=== PATIENT | female | born 1980 | race Caucasian/White ===

== ENCOUNTER → 2016-07-14 | Day surgery (SDC) | payer OTHER, MEDICAID ==
[~2016-07-14] MED LIST: Lidocaine 1% with EPINEPHrine 1:100,000 50 ML MDV ONE; Sodium Chloride 0.9% 0 ML ONE; Sodium Chloride 0.9% 1,000 ML IV SCH; Sodium Tetradecyl Sulfate 1% 20 MG/2 ML SDV ONE
== END ==
LOC: JP.SDS 07:45
PROVIDERS: ATTEND Surgery
DX: Z53.9 Procedure and treatment not carried out, unspecified reason (principal)
CPT/HCPCS: J1642; J7050

== ENCOUNTER 2017-01-03 19:59 | Emergency (ER) | payer MEDICAID, OTHER ==
[2017-01-03 20:09] VITALS: BP 119/70
--- NOTE | 2017-01-03 21:31 | EDM.PDOC ---
[id number]: SEVER ABDOMINAL PAIN RT RADIATES TO BACK Time Seen by Provider: 01/03/17 20:15 Source of Information: Reports: Patient History Limitations: Reports: No Limitations - History of Present Illness INITIAL COMMENTS - FREE TEXT/NARRATIVE: 36-year-old female with a history of gastric bypass has had a persistent abdominal pain for the past several weeks. Initial workup showed some ovarian cyst issues with some free fluid, she has an SHAKE MAKER appointment in 1 week. The pain is now more upper abdomen on the right side radiating through to her back and seems to be worse when she tries to eat. No fevers or chills, no bowel changes. She was told if it gets worse to come into the emergency room. She actually looks comfortable. Onset: Gradual Duration: Week(s): (Pain is been ongoing for 3 weeks, the upper abdominal pain for several days) RUQ Pain Score (Numeric/FACES): 6 - Related Data Allergies Allergy/AdvReac Type Severity Reaction Status Date / Time amoxicillin [Amoxicillin] Allergy Hives Unverified 07/12/16 12:53 Tetracyclines Allergy Hives Unverified 07/12/16 12:53 Home Meds: Home Meds Cyanocobalamin (Vitamin B12) [Vitamin B12] 1,000 mcg PO DAILY 09/29/15 [History] Pediatric Multivit #17/Iron [Children's Chewables] 1 tab PO BID #0 10/02/15 [Rx ] Pantoprazole [Protonix] 40 mg PO BID 12/18/15 [History] Calcium Carbonate [Tums] 200 mg PO BID 03/18/16 [History] Multivitamin with Minerals [Multiple Vitamin] 1 tab PO BID 03/18/16 [History] Cyanocobalamin (Vitamin B-12) [Vitamin B-12] 1,000 mcg IM .Q3WKS 06/24/16 [ History] Sucralfate [Carafate] 10 ml PO QID 06/24/16 [History] Past Medical History HEENT History: Reports: None Cardiovascular History: Reports: Arrhythmia Respiratory History: Reports: None Gastrointestinal History: Reports: Chronic Constipation, Colon Polyp, Gastritis , GERD, Hemorrhoids, Hiatal Hernia, Irritable Bowel Syndrome Genitourinary History: Reports: None SHAKE MAKER History: Reports: , Spontaneous Musculoskeletal History: Reports: None Neurological History: Reports: None Psychiatric History: Reports: None Endocrine/Metabolic History: Reports: Obesity/BMI 30+ Hematologic History: Reports: B12 Deficiency Immunologic History: Reports: None Oncologic (Cancer) History: Reports: None Dermatologic History: Reports: None - Infectious Disease History Infectious Disease History: Reports: None - Past Surgical History HEENT Surgical History: Reports: None Cardiovascular Surgical History: Reports: None GI Surgical History: Reports: Bariatric Procedure, Cholecystectomy, Colonoscopy , EGD, Hernia Repair/Other Female Surgical History: Reports: Hysterectomy Musculoskeletal Surgical History: Reports: Other (See Below) Oncologic Surgical History: Reports: None Social & Family History - Family History Family Medical History: Noncontributory Cardiac: Reports: Bypass, Hypertension, [place] Respiratory: Reports: None GI: Reports: None : Reports: None OBGYN: Reports: None Musculoskeletal: Reports: None Neurological: Reports: Dementia Psychiatric: Reports: None Endocrine/Metabolic: Reports: Diabetes, type II, Hypothyroidism Hematologic: Reports: None Immunologic: Reports: None Dermatologic: Reports: None Oncologic: Reports: Breast, Cervix, Liver - Tobacco Use Smoking Status *Q: Never Smoker Second Hand Smoke Exposure: No - Caffeine Use Caffeine Use: Reports: Coffee - Alcohol Use Days Per Week of Alcohol Use: 0 - Recreational Drug Use Recreational Drug Use: No ED ROS GENERAL - Review of Systems Review Of Systems: See Below Constitutional: Denies: Fever, Chills, Malaise Respiratory: Denies: Shortness of Breath Cardiovascular: Denies: Chest Pain GI/Abdominal: Reports: Abdominal Pain. Denies: Diarrhea, Nausea, Vomiting : Reports: No Symptoms Skin: Reports: No Symptoms Neurological: Reports: No Symptoms ED EXAM, GI/ABD - Physical Exam Exam: See Below Exam Limited By: No Limitations General Appearance: Alert, No Apparent Distress Eyes: Bilateral: Normal Appearance (No jaundice) Respiratory/Chest: No Respiratory Distress, Lungs Clear Cardiovascular: Regular Rate, Rhythm GI/Abdominal: Normal Bowel Sounds, Soft, Tenderness (She does react with tenderness to palpation of the right upper quadrant but there are no masses, no guarding) Course - Vital Signs Last Recorded V/S: Last Vital Signs Temp 97.4 F 01/03/17 20:15 Pulse 60 01/03/17 20:15 Resp 16 01/03/17 20:15 BP 119/70 01/03/17 20:15 Pulse Ox 100 01/03/17 20:15 - Orders/Labs/Meds Labs: Laboratory Tests 01/03/17 01/03/17 Range/Units 20:55 20:55 WBC 4.9 (4.5-11.0) K/uL RBC 3.32 (3.30-5.50) M/uL Hgb 10.6 L D (12.0-15.0) g/dL Hct 31.7 L (36.0-48.0) % MCV 96 (80-98) fL MCH 32 H (27-31) pg MCHC 33 (32-36) % Plt Count 219 (150-400) K/uL Neut % (Auto) 43 (36-66) % Lymph % (Auto) 46 H (24-44) % [place] % (Auto) 9 H (2-6) % Eos % (Auto) 2 (2-4) % Baso % (Auto) 1 (0-1) % Sodium 143 (140-148) mmol/L Potassium 3.7 (3.6-5.2) mmol/L Chloride 107 (100-108) mmol/L Carbon Dioxide 27 (21-32) mmol/L Anion Gap 9.0 (5.0-14.0) mmol/L BUN 12 (7-18) mg/dL Creatinine 0.7 (0.6-1.0) mg/dL Est Cr Clr Drug Dosing 112.22 mL/min Estimated GFR (MDRD) > 60 (>60) Glucose 83 (74-106) mg/dL Calcium 8.1 L (8.5-10.1) mg/dL Total Bilirubin 0.9 (0.2-1.0) mg/dL AST 18 (15-37) U/L ALT 26 (12-78) U/L Alkaline Phosphatase 75 (46-116) U/L Total Protein 6.6 (6.4-8.2) g/dL Albumin 3.4 (3.4-5.0) g/dL Globulin 3.2 (2.3-3.5) g/dL Albumin/Globulin Ratio 1.1 L (1.2-2.2) Amylase 46 (25-115) U/L Lipase 134 (73-393) U/L - Re-Assessments/Exams Free Text/Narrative Re-Assessment/Exam: 01/03/17 21:30 CBC and CMP were obtained which were reassuring other than a mildly low hemoglobin. I suspect an EGD would be worthwhile but no further workup I think is needed at this time. She is to contact the surgical department tomorrow to discuss a recheck. Departure - Departure Time of Disposition: 21:40 Disposition: Home, Self-Care 01 Condition: Good Clinical Impression: Abdominal pain Qualifiers: Abdominal location: right upper quadrant Qualified Code(s): R10.11 - Right upper quadrant pain - Discharge Information Instructions: Abdominal Pain, Adult, [id number] Referrals: PCP,None [Primary Care Provider] - Forms: ED Department Discharge Care Plan Goals: Continue your current medications, diet as tolerated and call the surgical clinic in the next day or 2 to set up a recheck appointment.
== END 2017-01-03 21:40 | disposition home or self-care (01) ==
LOC: JP.ED 19:59
DX: R10.11 Right upper quadrant pain (principal); K21.9 Gastro-esophageal reflux disease without esophagitis; E66.9 Obesity, unspecified; Z90.49 Acquired absence of other specified parts of digestive tract; Z90.710 Acquired absence of both cervix and uterus; Z88.1 Allergy status to other antibiotic agents; Z79.899 Other long term (current) drug therapy; Z68.21 Body mass index [BMI] 21.0-21.9, adult
CPT/HCPCS: 36415; 80053; 82150; 83690; 85025; 99284

== ENCOUNTER 2017-12-28 19:47 | Emergency (ER) | payer BC, OTHER ==
[2017-12-28 20:23] VITALS: BP 125/72
[2017-12-28] MEDS ORDERED: Ketorolac 60 MG/2 ML SDV IM ONE (20:29)
--- NOTE | 2017-12-28 20:34 | EDM.PDOC ---
ED HPI GENERAL MEDICAL PROBLEM - General Chief Complaint: Respiratory Problem Stated Complaint: DIFFICULTY BREATHING Time Seen by Provider: 12/28/17 20:20 Source of Information: Reports: Patient, Old Records, RN History Limitations: Reports: No Limitations - History of Present Illness INITIAL COMMENTS - FREE TEXT/NARRATIVE: 38 yo female presents with pleuritic pain to the right side of her chest. Denies injury to this area. No fever. Is not a smoker. Has noticed more swelling in her right leg lately. Pain feels like when she had pleurisy in the past. Notes tenderness to the right lateral chest when she touches it. Sx's x 2 days. Onset: Today Onset Date: 12/28/17 Duration: Hour(s):, Constant Location: Reports: Chest Quality: Reports: Sharp, Stabbing Severity: Moderate Improves with: Reports: Other (not breathing) Worsens with: Reports: Movement (or breathing) Context: Reports: Other (unknown) Associated Symptoms: Reports: Other (R leg slightly swollen without tenderness. 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: Other (see below) (none) - Related Data Allergies Allergy/AdvReac Type Severity Reaction Status Date / Time amoxicillin [Amoxicillin] Allergy Hives Verified 12/28/17 20:16 Tetracyclines Allergy Hives Verified 12/28/17 20:16 Home Meds: Home Meds Cyanocobalamin (Vitamin B12) [Vitamin B12] 1,000 mcg PO DAILY 09/29/15 [History] Pediatric Multivit #17/Iron [Children's Chewables] 1 tab PO BID #0 10/02/15 [Rx] Pantoprazole [Protonix] 40 mg PO BID 12/18/15 [History] Calcium Carbonate [Tums] 200 mg PO BID 03/18/16 [History] Multivitamin with Minerals [Multiple Vitamin] 1 tab PO BID 03/18/16 [History] Cyanocobalamin (Vitamin B-12) [Vitamin B-12] 1,000 mcg IM .Q3WKS 06/24/16 [ History] Sucralfate [Carafate] 10 ml PO QID 06/24/16 [History] Past Medical History HEENT History: Reports: None Cardiovascular History: Reports: Arrhythmia Respiratory History: Reports: None Gastrointestinal History: Reports: Chronic Constipation, Colon Polyp, Gastritis , GERD, Hemorrhoids, Hiatal Hernia, Irritable Bowel Syndrome Genitourinary History: Reports: None CLOTH 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 History: Reports: , Spontaneous Musculoskeletal History: Reports: None Neurological History: Reports: None Psychiatric History: Reports: None Endocrine/Metabolic History: Reports: Obesity/BMI 30+ Hematologic History: Reports: B12 Deficiency Immunologic History: Reports: None Oncologic (Cancer) History: Reports: None Dermatologic History: Reports: None - Infectious Disease History Infectious Disease History: Reports: None - Past Surgical History HEENT Surgical History: Reports: None Cardiovascular Surgical History: Reports: None GI Surgical History: Reports: Bariatric Procedure, Cholecystectomy, Colonoscopy , EGD, Hernia Repair/Other Female Surgical History: Reports: Hysterectomy Musculoskeletal Surgical History: Reports: Other (See Below) Oncologic Surgical History: Reports: None Social & Family History - Family History Family Medical History: Noncontributory Cardiac: Reports: Bypass, Hypertension, [place] Respiratory: Reports: None GI: Reports: None : Reports: None OBGYN: Reports: None Musculoskeletal: Reports: None Neurological: Reports: Dementia Psychiatric: Reports: None Endocrine/Metabolic: Reports: Diabetes, type II, Hypothyroidism Hematologic: Reports: None Immunologic: Reports: None Dermatologic: Reports: None Oncologic: Reports: Breast, Cervix, Liver - Tobacco Use Smoking Status *Q: Never Smoker - Caffeine Use Caffeine Use: Reports: Coffee ED ROS GENERAL - Review of Systems Review Of Systems: See Below Constitutional: Reports: No Symptoms HEENT: Reports: No Symptoms Respiratory: Reports: Pleuritic Chest Pain Cardiovascular: Reports: No Symptoms GI/Abdominal: Reports: No Symptoms : Reports: No Symptoms Musculoskeletal: Reports: Other (R leg minimally swollen) Skin: Reports: No Symptoms Neurological: Reports: No Symptoms Psychiatric: Reports: No Symptoms ED EXAM, GENERAL - Physical Exam Exam: See Below Exam Limited By: No Limitations General Appearance: Alert, WD/WN, Mild Distress Eye Exam: Bilateral Eye: Normal Inspection Ears: Normal External Exam, Normal Canal, Hearing Grossly Normal Ear Exam: Bilateral Ear: Auricle Normal, Canal Normal Nose: Normal Inspection, Normal Mucosa, No Blood Throat/Mouth: Normal Inspection, Normal Lips, Normal Oropharynx, Normal Voice, No Airway Compromise Head: Atraumatic, Normocephalic Neck: Normal Inspection Respiratory/Chest: No Respiratory Distress, Lungs Clear, Normal Breath Sounds, No Accessory Muscle Use, Other (R lateral chest wall tenderness. ). No: Chest Non-Tender Cardiovascular: Regular Rate, Rhythm GI/Abdominal: Normal Bowel Sounds, Soft, Non-Tender Extremities: Pedal Edema (trace on R with engorgement/varicosities of veins visible in that leg. ). No: No Pedal Edema Neurological: Alert, Oriented, CN II-XII Intact, Normal Cognition, No Motor/ Sensory Deficits Psychiatric: Normal Affect, Normal Mood Skin Exam: Warm, Dry, Intact, Normal Color, No Rash Course - Vital Signs Last Recorded V/S: Last Vital Signs Temp 36.6 C 12/28/17 20:21 Pulse 65 12/28/17 20:21 Resp 16 12/28/17 20:21 BP 125/72 12/28/17 20:21 Pulse Ox 99 12/28/17 20:21 - Orders/Labs/Meds Orders: Active Orders 24 hr Category Date Time Status Ang Chest [CT] Stat Exams 12/28/17 22:37 Ordered VL Duplex Lwr Ext Veins Ltd Rt [US] Stat Exams 12/28/17 21:20 Taken Iopamidol [Isovue-370 (76%)] Med 12/28/17 22:45 Active 100 ml IV . DIRECTED Sodium Chloride 0.9% [Normal Saline] 100 ml Med 12/28/17 22:45 Active IV ASDIRECTED Sodium Chloride 0.9% [Saline Flush] Med 12/28/17 22:40 Active 10 ml FLUSH ASDIRECTED PRN Medication Orders Sodium Chloride (Normal Saline) 100 mls @ 3 mls/sec IV ASDIRECTED NILSON Last Admin: 12/28/17 23:08 Dose: 3 mls/sec Iopamidol (Isovue-370 (76%)) 100 ml IV . DIRECTED NILSON Last Admin: 12/28/17 23:07 Dose: 100 ml Sodium Chloride (Saline Flush) 10 ml FLUSH ASDIRECTED PRN PRN Reason: Keep Vein Open Last Admin: 12/28/17 23:07 Dose: 10 ml Labs: Laboratory Tests 12/28/17 12/28/17 12/28/17 Range/Units 20:37 20:37 20:37 WBC 6.7 (4.5-11.0) K/uL RBC 3.67 (3.30-5.50) M/uL Hgb 11.5 L (12.0-15.0) g/dL Hct 33.6 L (36.0-48.0) % MCV 92 (80-98) fL MCH 31 (27-31) pg MCHC 34 (32-36) % Plt Count 288 (150-400) K/uL D-Dimer, Quantitative 610 H (0.0-400.0) ng/mL C-Reactive Protein 1.34 H (0.0-0.3) mg/dL Meds: Medications Generic Name Dose Route Start Last Admin Trade Name Freq PRN Reason Stop Dose Admin Sodium Chloride 100 mls @ 3 mls/sec 12/28/17 22:45 12/28/17 23:08 Normal Saline IV 3 mls/sec ASDIRECTED NILSON Administration Iopamidol 100 ml 12/28/17 22:45 12/28/17 23:07 Isovue-370 (76%) IV 100 ml . DIRECTED NILSON Administration Sodium Chloride 10 ml 12/28/17 22:40 12/28/17 23:07 Saline Flush FLUSH 10 ml ASDIRECTED PRN Administration Keep Vein Open Discontinued Medications Generic Name Dose Route Start Last Admin Trade Name Cindy PRN Reason Stop Dose Admin Ketorolac Tromethamine 60 mg 12/28/17 20:29 12/28/17 21:03 Toradol IM 12/28/17 20:30 60 mg ONETIME ONE Administration - Radiology Interpretation Free Text/Narrative:: venous doppler R leg negative CT PE study-RML pneumonia CT Results Date: 12/29/17 CT Results Time: 00:00 Departure - Departure Time of Disposition: 00:13 Disposition: Home, Self-Care 01 Condition: Fair Clinical Impression: Pneumonia Qualifiers: Pneumonia type: due to unspecified organism Laterality: right Lung location: middle lobe of lung Qualified Code(s): J18.1 - Lobar pneumonia, unspecified organism - Discharge Information Referrals: PCP,None [Primary Care Provider] - Forms: ED Department Discharge - My Orders Last 24 Hours: My Active Orders 12/28/17 21:20 VL Duplex Lwr Ext Veins Ltd Rt [US] Stat 12/28/17 22:37 Ang Chest [CT] Stat 12/28/17 22:40 Sodium Chloride 0.9% [Saline Flush] 10 ml FLUSH ASDIRECTED PRN 12/28/17 22:45 Iopamidol [Isovue-370 (76%)] 100 ml IV . DIRECTED Sodium Chloride 0.9% [Normal Saline] 100 ml IV ASDIRECTED - Assessment/Plan Last 24 Hours: My Active Orders 12/28/17 21:20 VL Duplex Lwr Ext Veins Ltd Rt [US] Stat 12/28/17 22:37 Ang Chest [CT] Stat 12/28/17 22:40 Sodium Chloride 0.9% [Saline Flush] 10 ml FLUSH ASDIRECTED PRN 12/28/17 22:45 Iopamidol [Isovue-370 (76%)] 100 ml IV . DIRECTED Sodium Chloride 0.9% [Normal Saline] 100 ml IV ASDIRECTED
[2017-12-28] MEDS ORDERED: Sodium Chloride 0.9% 10 ML Syringe FLUSH PRN (22:40)
[2017-12-28] MEDS ORDERED: Sodium Chloride 0.9% 100 ML IV SCH (22:45)
[2017-12-28] MEDS ORDERED: Iopamidol 755 Mg/ML 100 ML Bottle IV SCH (22:45)
--- NOTE | 2017-12-29 09:08 | US ---
VL Duplex Lwr Ext Veins Ltd Rt INDICATION: elevated d-dimer/R leg slightly swollen FINDINGS: Ultrasound examination of the lower extremity using Doppler and compressive technique demon strates that the common femoral, femoral, and popliteal veins are patent, and negative for thrombus. The calf veins were segmentally visualized and are negative where seen. IMPRESSION: Negative for deep venous thrombosis.
== END 2017-12-29 00:40 | disposition home or self-care (01) ==
LOC: JP.ED 19:47
DX: J18.9 Pneumonia, unspecified organism (principal); Z88.1 Allergy status to other antibiotic agents; Z79.899 Other long term (current) drug therapy
CPT/HCPCS: 36415; 71275; 85027; 85379; 86140; 93971; 96372; 99284; J1885; J7030; J7050; Q9967

== ENCOUNTER 2018-01-16 12:14 | Inpatient (IN) | payer BC ==
[2018-01-16] MEDS ORDERED: HYDROmorphone 0.5 MG/0.5 ML Syringe IVPUSH ONE (13:29)
[2018-01-16] MEDS ORDERED: Lactated Ringers 1,000 ML IV SCH (13:30)
--- NOTE | 2018-01-16 13:35 | EDM.PDOC ---
ED HPI GENERAL MEDICAL PROBLEM - General Chief Complaint: Abdominal Pain Stated Complaint: SEVERE STOMACH PAIN, UNABLE TO STAND Time Seen by Provider: 01/16/18 13:20 Source of Information: Reports: Patient, Old Records History Limitations: Reports: No Limitations - History of Present Illness INITIAL COMMENTS - FREE TEXT/NARRATIVE: 37 yo female presents with epigastric pain that waxes and wanes. Was mild starting yesterday until about 11 am today, then got severe. Pain is mild now. No fever or nausea. Hx of gastric bypass with Dr. Prince about 2 yrs ago. No bleeding. Did not call Dr. Prince. Onset Date: 01/15/18 Duration: Hour(s): Location: Reports: Abdomen Quality: Reports: Pressure Severity: Moderate Improves with: Reports: Other (unknown) Worsens with: Reports: Other (unknown) Context: Reports: Other (hx of Hailey-N-Y) Associated Symptoms: Reports: Nausea/Vomiting (not now). 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: Reports: Other (see below) (none) Abdominal Pain Score (Numeric/FACES): 5 - Related Data Allergies Allergy/AdvReac Type Severity Reaction Status Date / Time amoxicillin [Amoxicillin] Allergy Hives Verified 01/16/18 13:54 Tetracyclines Allergy Hives Verified 01/16/18 13:54 Home Meds: Home Meds NK [No Known Home Meds] 01/16/18 [History] Past Medical History HEENT History: Reports: None Cardiovascular History: Reports: Arrhythmia Respiratory History: Reports: None Gastrointestinal History: Reports: Chronic Constipation, Colon Polyp, Gastritis , GERD, Hemorrhoids, Hiatal Hernia, Irritable Bowel Syndrome Genitourinary History: Reports: None LAST PULLER History: Reports: , Spontaneous Musculoskeletal History: Reports: None Neurological History: Reports: None Psychiatric History: Reports: None Endocrine/Metabolic History: Reports: Obesity/BMI 30+ Hematologic History: Reports: B12 Deficiency Immunologic History: Reports: None Oncologic (Cancer) History: Reports: None Dermatologic History: Reports: None - Infectious Disease History Infectious Disease History: Reports: None - Past Surgical History HEENT Surgical History: Reports: None Cardiovascular Surgical History: Reports: None GI Surgical History: Reports: Bariatric Procedure, Cholecystectomy, Colonoscopy , EGD, Hernia Repair/Other Female Surgical History: Reports: Hysterectomy Musculoskeletal Surgical History: Reports: Other (See Below) Oncologic Surgical History: Reports: None Social & Family History - Family History Family Medical History: Noncontributory Cardiac: Reports: Bypass, Hypertension, [place] Respiratory: Reports: None GI: Reports: None : Reports: None OBGYN: Reports: None Musculoskeletal: Reports: None Neurological: Reports: Dementia Psychiatric: Reports: None Endocrine/Metabolic: Reports: Diabetes, type II, Hypothyroidism Hematologic: Reports: None Immunologic: Reports: None Dermatologic: Reports: None Oncologic: Reports: Breast, Cervix, Liver - Caffeine Use Caffeine Use: Reports: Coffee ED ROS GENERAL - Review of Systems Review Of Systems: See Below Constitutional: Reports: No Symptoms HEENT: Reports: No Symptoms Respiratory: Reports: No Symptoms Cardiovascular: Reports: No Symptoms GI/Abdominal: Reports: Abdominal Pain, Nausea, Vomiting. Denies: Black Stool, Bloody Stool, Constipation, Diarrhea, Decreased Appetite, Distension, Hematemesis : Reports: No Symptoms Musculoskeletal: Reports: No Symptoms Skin: Reports: No Symptoms Neurological: Reports: No Symptoms ED EXAM, GI/ABD - Physical Exam Exam: See Below Exam Limited By: No Limitations General Appearance: Alert, WD/WN, No Apparent Distress Eyes: Bilateral: Normal Appearance Ears: Normal External Exam, Normal Canal, Hearing Grossly Normal, Normal TMs Nose: Normal Inspection, Normal Mucosa, No Blood Throat/Mouth: Normal Inspection, Normal Lips, Normal Oropharynx, Normal Voice, No Airway Compromise Head: Atraumatic, Normocephalic Neck: Normal Inspection Respiratory/Chest: No Respiratory Distress, Lungs Clear, Normal Breath Sounds Cardiovascular: Regular Rate, Rhythm, No Edema GI/Abdominal Exam: Normal Bowel Sounds, Soft, No Distention, Tender (upper abd/ epigastrium). No: Distended, Guarding, Rigid, Rebound, Abnormal Bowel Sounds, Hernia Extremities: Normal Inspection, Normal Range of Motion, Non-Tender, No Pedal Edema Neurological: Alert, Oriented, CN II-XII Intact, Normal Cognition, No Motor/ Sensory Deficits Psychiatric: Normal Affect, Normal Mood Skin Exam: Warm, Dry, Intact, Normal Color, No Rash Lymphatic: No Adenopathy Course - Vital Signs Last Recorded V/S: Last Vital Signs Temp 36.6 C 01/16/18 13:48 Pulse 64 01/16/18 13:48 Resp 20 01/16/18 13:48 BP 132/84 01/16/18 13:48 Pulse Ox 96 01/16/18 13:48 - Orders/Labs/Meds Orders: Active Orders 24 hr Category Date Time Status Lactated Ringers [Ringers, Lactated] 1,000 ml Med 01/16/18 13:30 Active IV ASDIRECTED Medication Orders Lactated Ringer's (Ringers, Lactated) 1,000 mls @ 150 mls/hr IV ASDIRECTED NILSON Last Admin: 01/16/18 14:11 Dose: 150 mls/hr Labs: Laboratory Tests 01/16/18 01/16/18 Range/Units 13:35 13:35 WBC 5.2 (4.5-11.0) K/uL RBC 3.76 (3.30-5.50) M/uL Hgb 11.6 L (12.0-15.0) g/dL Hct 34.5 L (36.0-48.0) % MCV 92 (80-98) fL MCH 31 (27-31) pg MCHC 34 (32-36) % Plt Count 300 (150-400) K/uL Sodium 140 (140-148) mmol/L Potassium 3.8 (3.6-5.2) mmol/L Chloride 106 (100-108) mmol/L Carbon Dioxide 25 (21-32) mmol/L Anion Gap 12.8 (5.0-14.0) mmol/L BUN 14 (7-18) mg/dL Creatinine 0.6 (0.6-1.0) mg/dL Est Cr Clr Drug Dosing 132.00 mL/min Estimated GFR (MDRD) > 60 (>60) Glucose 94 (74-106) mg/dL Calcium 8.2 L (8.5-10.1) mg/dL Lipase 106 (73-393) U/L Meds: Medications Generic Name Dose Route Start Last Admin Trade Name Freq PRN Reason Stop Dose Admin Lactated Ringer's 1,000 mls @ 150 mls/hr 01/16/18 13:30 01/16/18 14:11 Ringers, Lactated IV 150 mls/hr ASDIRECTED NILSON Administration Discontinued Medications Generic Name Dose Route Start Last Admin Trade Name Freq PRN Reason Stop Dose Admin Hydromorphone HCl 0.5 mg 01/16/18 13:29 01/16/18 14:12 Dilaudid IVPUSH 01/16/18 13:30 0.5 mg ONETIME ONE Administration Sodium Chloride 70 mls @ 3 mls/sec 01/16/18 13:40 01/16/18 14:23 Normal Saline IV 01/16/18 13:41 3 mls/sec ONETIME ONE Administration Iopamidol 100 ml 01/16/18 13:40 01/16/18 14:24 Isovue-300 (61%) IV 100 ml . DIRECTED PRN Administration RADIOLOGY EXAM Sodium Chloride 10 ml 01/16/18 13:40 01/16/18 14:45 Normal Saline FLUSH 01/16/18 13:41 10 ml ONETIME ONE Administration - Radiology Interpretation Free Text/Narrative:: CT abd/pelvis with IV contrast-partial ? volvulus + lung ? tumor noted. Departure - Departure Time of Disposition: 16:00 Disposition: Admitted As Inpatient 65 Condition: Fair Clinical Impression: Volvulus - Discharge Information Referrals: PCP,None [Primary Care Provider] - Forms: ED Department Discharge - My Orders Last 24 Hours: My Active Orders 01/16/18 13:30 Lactated Ringers [Ringers, Lactated] 1,000 ml IV ASDIRECTED - Assessment/Plan Last 24 Hours: My Active Orders 01/16/18 13:30 Lactated Ringers [Ringers, Lactated] 1,000 ml IV ASDIRECTED
[2018-01-16] MEDS ORDERED: Iopamidol 612 MG/ML 100 ML Bottle IV PRN (13:40)
[2018-01-16] MEDS ORDERED: Sodium Chloride 0.9% 10 ML SDV FLUSH ONE (13:40)
--- NOTE | 2018-01-16 15:15 | CT ---
Abdomen Pelvis w Cont CLINICAL HISTORY: Epigastric pain, history of Hailey-en-Y gastric bypass COMPARISON: 2014. TECHNIQUE: Transverse scans were obtained from the base of the lungs to the pubic symphysis following oral contrast and IV infusion of contrast.Auto dosage reduction and iterative reconstructiontechniqu es employed. FINDINGS: There is a pleural-based wedge-shaped density in the lateral aspect of the right middle lob e. This was not present on prior study The liver shows no mass. There is some diffuse intrahepatic bi liary dilatation.. This is likely related to patient's previous cholecystectomy. Patient has had prev ious Hailey-en-Y gastric bypass procedure. The spleen has a normal size and shape. The pancreas shows n o mass or inflammatory change. The adrenal glands are normal bilaterally . The kidneys show no mass, stones or hydronephrosis.. The ureters have normal course and contour as seen. There is a possibility of intra-abdominal and retroperitoneal fat which Scearce some fascial planes. The aorta has a normal contour.There is no suspicious retroperitoneal adenopathy. There is mild generalized small bowel and colonic distention. On images #52 through 72 there is some rotation of the mesentery and mesenteric vessels. This was not present on the 2014 study IMPRESSION: Approximately 2.4 x 2.2 cm wedge-shaped pleural-based density in the right middle lobe la terally. This is new since prior study. Neoplasm cannot be excluded. CT chest no contrast is recommen ded Generalized bowel distention. There is some rotation of the mid the mesentery and its vessels. Early changes of mid gut volvulus cannot be excluded.
[2018-01-16] MEDS ORDERED: Ondansetron 4 MG/2 ML SDV IV PRN (16:09)
[2018-01-16] MEDS ORDERED: HYDROmorphone/Normal Saline 15 MG/30 ML PCA IV SCH (16:30)
--- NOTE | 2018-01-16 16:34 | PCM.HP ---
H&P History of Present Illness - General Date of Service: 01/16/18 Admit Problem/Dx: Admission Diagnosis/Problem Admission Diagnosis/Problem Volvulus of small intestine Source of Information: Patient, Family, Provider History Limitations: Reports: No Limitations - History of Present Illness Initial Comments - Free Text/Narative: Betsy presents to the emergency room today with progressive mid abdominal pain. She reports symptoms over the past couple of months with dull midabdominal pain that starts anytime she tries to eat anything. Over the past few days and especially this morning she has had more intense and longer lasting pain. She describes a stabbing pain that starts in the middle of her abdomen and radiates to the back. This is often brought on by eating but sometimes happens without any sort of inciting event. Over the past few days her episodes have included a very severe pain but she often has at least a low level of pain as well. She has tried Pepto-Bismol without any relief. She has been eating less and less over the past couple months because eating often makes her feel sick. She has not had fevers or chills recently but was treated for pneumonia about 2-1/2 weeks ago. She does not have any cough or shortness of breath at this time. She has had watery and mucousy stools as her abdominal pain has progressed over the past couple of months. Workup in the emergency room included lab work which was normal and a CT scan of the abdomen which showed evidence for probable early midgut volvulus. She will be admitted for surgical consultation and likely surgical intervention in the morning. Abdominal Pain Score (Numeric/FACES): 5 - Related Data Allergies/Adverse Reactions: Allergies Allergy/AdvReac Type Severity Reaction Status Date / Time amoxicillin [Amoxicillin] Allergy Hives Verified 01/16/18 13:54 Tetracyclines Allergy Hives Verified 01/16/18 13:54 Home Medications: Home Meds NK [No Known Home Meds] 01/16/18 [History] Past Medical History HEENT History: Reports: None Cardiovascular History: Reports: Arrhythmia Respiratory History: Reports: None Gastrointestinal History: Reports: Chronic Constipation, Colon Polyp, Gastritis , GERD, Hemorrhoids, Hiatal Hernia, Irritable Bowel Syndrome Genitourinary History: Reports: None 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: , Spontaneous Musculoskeletal History: Reports: None Neurological History: Reports: None Psychiatric History: Reports: None Endocrine/Metabolic History: Reports: Obesity/BMI 30+ Hematologic History: Reports: B12 Deficiency Immunologic History: Reports: None Oncologic (Cancer) History: Reports: None Dermatologic History: Reports: None - Infectious Disease History Infectious Disease History: Reports: None - Past Surgical History HEENT Surgical History: Reports: None Cardiovascular Surgical History: Reports: None GI Surgical History: Reports: Bariatric Procedure, Cholecystectomy, Colonoscopy , EGD, Hernia Repair/Other Female Surgical History: Reports: Hysterectomy Musculoskeletal Surgical History: Reports: Other (See Below) Oncologic Surgical History: Reports: None Social & Family History - Family History Family Medical History: Noncontributory Cardiac: Reports: Bypass, Hypertension, [place] Respiratory: Reports: None GI: Reports: None : Reports: None OBGYN: Reports: None Musculoskeletal: Reports: None Neurological: Reports: Dementia Psychiatric: Reports: None Endocrine/Metabolic: Reports: Diabetes, type II, Hypothyroidism Hematologic: Reports: None Immunologic: Reports: None Dermatologic: Reports: None Oncologic: Reports: Breast, Cervix, Liver - Tobacco Use Smoking Status *Q: Never Smoker - Caffeine Use Caffeine Use: Reports: Coffee - Alcohol Use Alcohol Use History: No - Recreational Drug Use Recreational Drug Use: No H&P Review of Systems - Review of Systems: Review Of Systems: See Below Free Text/Narrative: A complete 12 point review of systems was obtained. Pertinent positives and negatives are noted in the history of present illness. All other systems were reviewed and were negative except as noted. Exam - Exam Exam: See Below - Vital Signs Vital Signs: Last Vital Signs Temp 35.6 C 01/16/18 16:08 Pulse 54 L 01/16/18 16:08 Resp 16 01/16/18 16:08 BP 115/68 01/16/18 16:08 Pulse Ox 100 01/16/18 16:08 Weight: 65.771 kg - Exam Quality Assessment: No: Supplemental Oxygen General: Alert, Oriented, Cooperative. No: Mild Distress HEENT: Conjunctiva Clear. No: Mucosa Moist & Hershey (dry), Scleral Icterus Neck: Supple, Trachea Midline. No: Lymphadenopathy Lungs: Clear to Auscultation, Normal Respiratory Effort Cardiovascular: Regular Rate, Regular Rhythm GI/Abdominal Exam: Soft, Non-Tender, No Distention, No Mass, Abnormal Bowel Sounds (hypoactive) Back Exam: Normal Inspection, Full Range of Motion Extremities: No Pedal Edema, Other (scar top of left foot). No: Increased Warmth Peripheral Pulses: 2+: Dorsalis Pedis (L), Dorsalis Pedis (R) Skin: Warm, Dry Neuro Extensive - Mental Status: Alert, Oriented x3, Nl Response to Commands Neuro Extensive - Motor, Sensory, Reflexes: CN II-XII Intact. No: Dysarthria, Abnormal Motor, Tremor Psychiatric: Alert, Normal Affect - Patient Data Lab Results Last 24 hrs: Laboratory Results - last 24 hr 01/16/18 01/16/18 Range/Units 13:35 13:35 WBC 5.2 (4.5-11.0) K/uL RBC 3.76 (3.30-5.50) M/uL Hgb 11.6 L (12.0-15.0) g/dL Hct 34.5 L (36.0-48.0) % MCV 92 (80-98) fL MCH 31 (27-31) pg MCHC 34 (32-36) % Plt Count 300 (150-400) K/uL Sodium 140 (140-148) mmol/L Potassium 3.8 (3.6-5.2) mmol/L Chloride 106 (100-108) mmol/L Carbon Dioxide 25 (21-32) mmol/L Anion Gap 12.8 (5.0-14.0) mmol/L BUN 14 (7-18) mg/dL Creatinine 0.6 (0.6-1.0) mg/dL Est Cr Clr Drug Dosing 132.00 mL/min Estimated GFR (MDRD) > 60 (>60) Glucose 94 (74-106) mg/dL Calcium 8.2 L (8.5-10.1) mg/dL Lipase 106 (73-393) U/L Result Diagrams: 01/16/18 13:35 01/16/18 13:35 Imaging Impressions Last 24 hrs: CT abd/pelvis - images personally reviewed - 2 cm pleural based nodule in the lateral right middle lobe. when compared to CT chest from about two weeks ago this is significantly improved. Swirling of small bowel and vessels in the mid- gut concerning for early volvulus. *Q Meaningful Use (ADM) - VTE *Q VTE Pharmacological Contraindications *Q: Patient Scheduled Surgery - VTE Risk Assess *Q Each Risk Factor Represents 1 Point: None Total Score 1 Point Risk Factors: 0 Each Risk Factor Represents 2 Points: Major surgery greater than 45 minutes Total Score 2 Point Risk Factors: 2 Each Risk Factor Represents 3 Points: None Total Score 3 Point Risk Factors: 0 Each Risk Factor Represents 5 Points: None Total Score 5 Point Risk Factors: 0 Venous Thromboembolism Risk Factor Score *Q: 2 - Problem List (1) Volvulus SNOMED Code(s): 3946631 ICD Code: K56.2 - VOLVULUS Status: Acute Current Visit: Yes Problem List Initiated/Reviewed/Updated: Yes Orders Last 24hrs: Active Orders 24 hr Category Date Time Status Patient Status Manage Transfer [TRANSFER] Routine ADT 01/16/18 16:26 Ordered Patient Status [ADT] Routine ADT 01/16/18 16:10 Active Oxygen Therapy [RC] PRN Care 01/16/18 16:10 Active Pulse Oximetry [RC] CONTINUOUS Care 01/16/18 16:15 Active Up ad [place] [RC] ASDIRECTED Care 01/16/18 16:09 Active VTE/DVT Education [RC] Per Unit Routine Care 01/16/18 16:10 Active Vital Signs [RC] Q1H Care 01/16/18 16:09 Active Vital Signs [RC] Q4H Care 01/16/18 21:00 Active Clear Liquid Diet [DIET] Diet 01/16/18 Dinner Active Nothing per Oral After Midnight Diet [DIET] Diet 01/17/18 Breakfast Active Dextrose 5%-Lactated Ringers 1,000 ml Med 01/16/18 16:24 Active IV ASDIRECTED HYDROmorphone/Normal Saline [Dilaudid FLY FINISHER 15 MG in NS Med 01/16/18 16:30 Active 30 ML] 15 mg IV ASDIRECTED Ondansetron [Zofran] Med 01/16/18 16:09 Active 4 mg IV Q4H PRN Sequential Compression Device [OM.PC] Per Unit Routine Oth 01/16/18 16:15 Ordered Resuscitation Status Routine Resus Stat 01/16/18 16:27 Ordered Medication Orders Hydromorphone HCl (Dilaudid Supervisor Grading 15 Mg In Ns 30 Ml) 15 mg IV ASDIRECTED NILSON; Protocol Dextrose/Lactated Ringer's (Dextrose 5%-Lactated Ringers) 1,000 mls @ 125 mls/ hr IV ASDIRECTED NILSON Ondansetron HCl (Zofran) 4 mg IV Q4H PRN PRN Reason: Nausea/Vomiting Assessment/Plan Comment:: ASSESSMENT AND PLAN - 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 Unlikely to get better without surgical intervention given progressive symptoms. She does have a history of duodenal switch surgery and a revision [address] Prinec has been consulted and surgical intervention is planned for the morning. -IV fluids -Pain control -Nausea management -Surgical consultation Pleural-based nodule, right middle lobe - Patient had right middle lobe pneumonia just over 2 weeks ago. Imaging findings have improved significantly since that time and likely represent resolving inflammation from the pneumonia. She does not have signs or symptoms of active pneumonia at this time. Maintenance issues - - DVT prophylaxis - mechanical - GI prophylaxis - PPI - Nutrition - ice chips today, nothing by mouth after midnight - Lopez catheter - not indicated CODE STATUS - full code Admission justification - This patient will be admitted for inpatient services and is medically appropriate meeting medical necessity for inpatient admission as outlined in my documentation. I reasonably expect the patient will require inpatient services that span a period time over 2 midnights. I reasonably expect this patient to be discharged or transferred within 96 hours after admission to the [facility]. Disposition - anticipate discharge to home after the hospital stay Imtiaz Sánchez M.D.
[2018-01-16] MEDS ORDERED: Naloxone 0.4 MG/ML SDV IV PRN (16:39)
[2018-01-16] MEDS ORDERED: Ondansetron 4 MG Tab.DIS PO PRN (17:33)
[2018-01-16] MEDS ORDERED: Acetaminophen 325 MG Tab PO PRN (17:33)
[2018-01-16] MEDS ORDERED: HYDROmorphone 0.5 MG/0.5 ML Syringe IVPUSH PRN (17:33)
[2018-01-16] MEDS ORDERED: Pneumococcal Polyvalent-23 Vaccine 0.5 ML SDV SUBCUT ONE (17:50)
[2018-01-16] MEDS ORDERED: Pantoprazole 40 MG Tab.CR PO SCH (21:00)
[2018-01-16] MEDS: Dextrose 5%-Lactated Ringers 1,000 ML IV SCH (21:35)
[2018-01-17] MEDS ORDERED: cefOXitin 2 GM Vial ONE (04:37)
[2018-01-17] MEDS ORDERED: Meropenem 500 MG SDV ONE (04:37)
[2018-01-17] MEDS ORDERED: Bupivacaine 0.5%/EPINEPHrine 1:200,000 50 ML MDV ONE (04:58)
[2018-01-17] MEDS: Dextrose 5%-Lactated Ringers 1,000 ML IV SCH ×2 (05:16→12:50)
[2018-01-17] MEDS ORDERED: fentaNYL 250 MCG/5 ML SDV ONE (05:26)
[2018-01-17] MEDS ORDERED: Dexamethasone 4 MG/ML SDV ONE (05:29)
[2018-01-17] MEDS ORDERED: Rocuronium 50 MG/5 ML Vial ONE (05:29)
[2018-01-17] MEDS ORDERED: Propofol 200 MG/20 ML SDV ONE (05:29)
[2018-01-17] MEDS ORDERED: Ondansetron 4 MG/2 ML SDV ONE (05:29)
[2018-01-17] MEDS ORDERED: Neostigmine Methylsulfate 1 MG/ML 5 ML Syringe ONE (05:29)
[2018-01-17] MEDS ORDERED: Glycopyrrolate 0.2 MG/ML 5 ML MDV ONE (05:29)
[2018-01-17] MEDS ORDERED: Succinylcholine 200 MG/10 ML MDV ONE (05:29)
[2018-01-17] MEDS ORDERED: Ropivacaine 32 ML, Dexamethasone 8 MG, EPINEPHrine 0.4 MG, Sodium Chloride 0.9% 45.6 ML NERVRT SCH ×4 (05:30)
[2018-01-17] MEDS ORDERED: Ketamine 500 MG/5 ML MDV IV SCH (05:30)
[2018-01-17] MEDS ORDERED: cefOXitin 2 GM in Sodium Chloride 0.9% 50 ML IV ONE (05:30)
[2018-01-17] MEDS ORDERED: Lidocaine 2% 100 MG/5 ML Syringe IVPUSH ONE (05:30)
[2018-01-17] MEDS ORDERED: Lidocaine 2% 100 MG/5 ML Syringe ONE (05:36)
[2018-01-17] MEDS ORDERED: Lactated Ringers 1,000 ML ONE (07:10)
[2018-01-17] MEDS ORDERED: hydrOXYzine HCl 100 MG/2 ML SDV IM ONE (07:48)
[2018-01-17] MEDS ORDERED: fentaNYL 100 MCG/2 ML SDV IVPUSH ONE (07:48)
[2018-01-17] MEDS ORDERED: Metoclopramide 10 MG/2 ML SDV IVPUSH PRN (10:00)
[2018-01-17] MEDS ORDERED: Labetalol 20 MG/4 ML Syringe IVPUSH PRN (10:00)
[2018-01-17] MEDS ORDERED: hydrOXYzine HCl 100 MG/2 ML SDV IM PRN (10:00)
[2018-01-17] MEDS ORDERED: diphenhydrAMINE 50 MG/ML SDV IVPUSH PRN (10:00)
[2018-01-17] MEDS: Acetaminophen Soln 650 MG/20.3 ML UD Cup PO SCH ×3 (10:01→21:04)
[2018-01-17] MEDS: Lidocaine 0.4%/D5W 2 GM/500 ML BAG IV SCH (10:02)
[2018-01-17] MEDS: Heparin Sodium 5,000 Units/ML Vial SUBCUT SCH ×2 (10:02→21:05)
[2018-01-17] MEDS: cefOXitin 2 GM in Sodium Chloride 0.9% 50 ML IV SCH ×3 (11:24→23:09)
[2018-01-17] MEDS: Gabapentin 250 MG/5 ML Solution ML 470 ML Bottle PO SCH ×2 (13:35→21:04)
[2018-01-17] MEDS ORDERED: MVI, Adult with Vitamin K 10 ML, Thiamine 200 MG, Chromium/Copper/Mang/Selen/Zn 1 ML in... IV SCH ×4 (16:00)
[2018-01-17] MEDS ORDERED: Pantoprazole 40 MG Vial IVPUSH SCH (21:00)
[2018-01-18] MEDS: Dextrose 5%-Lactated Ringers 1,000 ML IV SCH (00:09)
[2018-01-18] MEDS ORDERED: Iohexol 647 MG/ML 50 ML SDV PO SCH (01:45)
[2018-01-18] MEDS: Acetaminophen Soln 650 MG/20.3 ML UD Cup PO SCH (03:48)
[2018-01-18] MEDS: Lidocaine 0.4%/D5W 2 GM/500 ML BAG IV SCH (06:05)
[2018-01-18] MEDS ORDERED: Ondansetron 4 MG Tab.DIS PO PRN (06:59)
--- NOTE | 2018-01-18 08:00 | PN ---
DATE OF SERVICE: 01/18/2018 SUBJECTIVE: Betsy is postoperative day #1. Her pain has been controlled. Vital signs have been stable. She has been up ambulating. Oral intake 1510 and urine output 2650. She has no questions or concerns. REVIEW OF SYSTEMS: Remainder of review of systems negative for any pertinent positives and negatives. OBJECTIVE: GENERAL: Betsy Garcia is a 37-year-old female. She is alert and orientated. VITAL SIGNS: TPR is 96.3, 62, 16, and blood pressure is 104/66. HEENT: Negative. NECK: Supple. HEART: Regular rate and rhythm. LUNGS: Clear. ABDOMEN: [place] dry and intact. Abdominal binder is on. EXTREMITIES: Without peripheral edema. ASSESSMENT: 1. Exploratory laparotomy with reduction of small bowel volvulus and closure of internal hernia and placement of Interceed mesh for small bowel volvulus and extensive intraabdominal adhesions. Date of surgery, 01/17/2018. 2. Duodenal switch. 3. Unspecified surgical malabsorption. 4. Vitamin B12 deficiency. 5. Vitamin D deficiency. 6. Noncompliance with vitamin intake. PLAN: 1. 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 2. Discontinue manager cardiac cath. 3. Discontinue continuous pulse ox. 4. Saline lock IV. 5. Discontinue scheduled Tylenol. 6. Dressing off, may shower. 7. Step-2 gastric bypass diet, double portions. 8. Percocet 5/325 mg 1 to 2 every 4 hours p.r.n. pain. 9. Zofran ODT 4 mg sublingual q.4 hours p.r.n. nausea and vomiting. 10.Vitamin D3 50,000 international units daily. 11.Good pulmonary toilet. 12.We will evaluate p.r.n. or in a.m. 13.Plan discharge in a.m. Silvana Aldana PA-C /[id number]
[2018-01-18] MEDS: Acetaminophen/oxyCODONE 325-5 MG Tab PO PRN ×3 (08:18→20:03)
[2018-01-18] MEDS: Gabapentin 250 MG/5 ML Solution ML 470 ML Bottle PO SCH ×3 (08:23→20:02)
[2018-01-18] MEDS: Celecoxib 200 MG Cap PO SCH (08:23)
[2018-01-18] MEDS: Heparin Sodium 5,000 Units/ML Vial SUBCUT SCH ×2 (08:24→20:02)
--- NOTE | 2018-01-18 08:35 | CR ---
UGI wo KUB HISTORY: eval R -Y GBP FINDINGS: After administration of oral contrast, upright views were obtained. Post operative changes gastric bypass. Surgical drains in place. No evidence for leak. Contrast passes freely into proximal small bowel loops. There is some mild small bowel distention. IMPRESSION: No evidence for leak or obstruction.
[2018-01-18] MEDS: SCOPOLAMINE PATCH CHECK TOP SCH (08:41)
[2018-01-18] MEDS: Cholecalciferol (Vitamin D3) 50,000 Unit Cap PO SCH (10:04)
[2018-01-18] MEDS: Pantoprazole 40 MG Tab.CR PO SCH ×2 (10:04→16:44)
[2018-01-18] MEDS: Cyclobenzaprine 10 MG Tab PO PRN ×2 (10:28→20:03)
[2018-01-18] MEDS ORDERED: Pneumococcal Polyvalent-23 Vaccine 0.5 ML SDV SUBCUT ONE (11:00)
[2018-01-19] MEDS: Acetaminophen/oxyCODONE 325-5 MG Tab PO PRN (02:48)
[2018-01-19] MEDS: Pantoprazole 40 MG Tab.CR PO SCH (07:58)
[2018-01-19] MEDS: Celecoxib 200 MG Cap PO SCH (07:58)
[2018-01-19] MEDS ORDERED: Vitamin A 100,000 Units/2 ML SDV IM ONE (08:00)
[2018-01-19] MEDS: Gabapentin 250 MG/5 ML Solution ML 470 ML Bottle PO SCH (08:04)
[2018-01-19] MEDS: Heparin Sodium 5,000 Units/ML Vial SUBCUT SCH (08:04)
[2018-01-19] MEDS: Cholecalciferol (Vitamin D3) 50,000 Unit Cap PO SCH (08:05)
[2018-01-19] MEDS: SCOPOLAMINE PATCH CHECK TOP SCH (08:05)
--- NOTE | 2018-01-19 08:24 | DISCH ---
ADMISSION DIAGNOSES: 1. Partial small bowel obstruction, volvulus. 2. Status post duodenal switch. 3. Unspecified surgical malabsorption. 4. B12 deficiency. 5. Vitamin B1 deficiency. 6. Vitamin D deficiency. 7. History of irritable bowel syndrome. 8. Polycystic ovary disease. 9. Noncompliance with duodenal switch diet vitamins and followup. DISCHARGE DIAGNOSES: Exploratory laparotomy with reduction of small bowel volvulus and closure of internal hernia and placement of Interceed mesh for small bowel volvulus and extensive intraabdominal adhesions. Date of surgery, 01/17/2018. HISTORY: Betsy Garcia is a 37-year-old female who presented to the emergency room with abdominal pain. After preoperative evaluation and discussion of possible risks and possible complications, she wished to proceed with surgical procedure. HOSPITAL COURSE: Betsy had her surgery on 01/17/2018. She had no operative complications. 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 She was started on step-2 gastric bypass diet and oral pain medication. Vitamin D was low. She was started on 50,000 international units. On postoperative day #2, her pain was controlled. Her activity was good. Vital signs were stable. She was able to be discharged to home. Prior to discharge, the patient was given vitamin A 100,000 IM. PHYSICAL EXAMINATION: GENERAL: Betsy Garcia is a 37-year-old female. She is alert and orientated. VITAL SIGNS: TPR 96.3, 62, 14, and blood pressure 117/71. HEENT: Negative. NECK: Supple. HEART: Regular rate and rhythm. LUNGS: Clear. ABDOMEN: [place] intact. Abdominal binder is on. EXTREMITIES: Without peripheral edema. DISPOSITION: Discharged home. CONDITION: Stable and improving. FOLLOWUP: Followup appointment with Silvana Aldana PA-C, at [facility] on 01/29/2018 at 9 a.m. DISCHARGE MEDICATIONS: Home medications; 1. Percocet 5/325 mg 1 to 2 q.4 hours p.r.n. pain, #40. 2. Celebrex 200 mg p.o. daily, #14. 3. Vitamin D3 50,000 international units, take one 3 times a week for 1 month, #12 given. 4. Zofran ODT 4 mg every 4 hours p.r.n. nausea. 5. Protonix 40 mg p.o. daily, #90. 6. Vitamin A 10,000 international units p.o. daily, #30. DISCHARGE DIET: Step-2 gastric bypass diet. May have hot cereal. Drink 8 to 10 glasses of water a day. ACTIVITY: No lifting greater than 10 pounds for 6 weeks. Walk 6 times daily inside your home. Driving, do not drive while on the Percocet. Shower/bathing, may shower. Keep operative site clean and dry. Wear abdominal binder for 6 weeks and then as tolerated. DISCHARGE INSTRUCTIONS: Notify provider if any fever, increased pain, nausea, or vomiting. Special Instructions; 1. Use incentive spirometer 10 times every hour while awake for one week. 2. Start all vitamins one at a time when you go home, in addition to the vitamin D and vitamin A.
[2018-01-19 08:27] VITALS: BP 109/72
[2018-01-19] MEDS ORDERED: Cyanocobalamin (Vitamin B12) 1,000 MCG/ML SDV IM ONE (09:00)
--- NOTE | 2018-01-22 13:51 | OR ---
DATE OF PROCEDURE: 01/17/2018 PREOPERATIVE DIAGNOSIS: Small bowel obstruction. POSTOPERATIVE DIAGNOSES: 1. Small bowel obstruction secondary to small bowel volvulus. 2. Extensive intraabdominal adhesions. OPERATIVE PROCEDURES: Exploratory laparotomy with; 1. Reduction of small bowel volvulus and closure of internal hernia (34970). 2. Placement of Interceed mesh to limit recurrent adhesion formation (02470). ANESTHESIA: General. INDICATION FOR PROCEDURE: A 37-year-old, status post a duodenal switch in September 2015, presenting with a picture of a small bowel obstruction. CT scan suggestive of a small bowel volvulus. The plan is to proceed with open laparotomy, release of the bowel obstruction, closure of any volvulus related mesenteric defects, as well as possible bowel resection. The potential risks including bleeding, infection, injury to underlying viscera, problems with the problem recurring overtime were all reviewed, and the patient wishes to proceed. DETAILS OF PROCEDURE: The patient was taken to the operating room and placed in a supine position. After general endotracheal anesthesia was induced, the abdomen was prepped and draped. Epigastric incision from the umbilicus, roughly a handsbreadth upward toward the xiphoid was made and carried down through the skin and subcutaneous tissue, and through the abdominal wall. As one entered the abdomen, there was quite a bit in the way of adhesions between the area of the small bowel anastomosis as well as the duodenal ileostomy, and the distal aspect of the sleeve gastrectomy portion of the duodenal switch. These were eventually taken down and no significant deserosalization or other problems were noted within the small bowel or adjacent stomach. The patient did have a volvulus with rotation of the bulk of the small bowel from the left to right direction underneath the bowel amounting to the Hailey limb type portion of the configuration of the duodenal switch. This was gradually reduced and then the mesenteric defect closed. Some of the bowel continued to traverse underneath this area, and this was fixed with several additional sutures of 2-0 silk, which was used to close the mesenteric defect in general. At that point, no further problems were noted. There appeared to be no need for any significant further mesenteric distortion or luminal obstruction within the small bowel. To limit recurrent adhesion formation between the pelvic and abdominal wall, and the underlying viscera, the Interceed mesh was then placed underneath the incision and extending somewhat down onto the pelvis. The midline fascia was then approximated with #2 Vicryl stitch, and the subcutaneous tissue with 3-0 Vicryl stitch and skin with vijaya. No drains were placed. The patient was taken to the recovery room in a satisfactory condition. Julian Prince MD /[id number]
== END 2018-01-19 09:00 | disposition home or self-care (01) | DRG 224 ==
LOC: JP.ED 12:14 → JP.MS 12:15
PROVIDERS: ADMIT Internal Medicine; ATTEND Surgery
PROC: 0DN80ZZ Release Small Intestine, Open Approach (ICD-10-PCS; principal; 2018-01-17)
PROC: 0DQV0ZZ Repair Mesentery, Open Approach (ICD-10-PCS; principal; 2018-01-17)
PROC: 0DU Gastrointestinal System, Supplement (ICD-10-PCS; principal; 2018-01-17)
PROC: 0DNW0ZZ Release Peritoneum, Open Approach (ICD-10-PCS; principal; 2018-01-17)
DX: K56.2 Volvulus (principal); K91.2 Postsurgical malabsorption, not elsewhere classified; E53.8 Deficiency of other specified B group vitamins; E51.9 Thiamine deficiency, unspecified; E55.9 Vitamin D deficiency, unspecified; K66.0 Peritoneal adhesions (postprocedural) (postinfection); K46.9 Unspecified abdominal hernia without obstruction or gangrene; E28.2 Polycystic ovarian syndrome; K58.1 Irritable bowel syndrome with constipation; K21.9 Gastro-esophageal reflux disease without esophagitis; R91.1 Solitary pulmonary nodule; Z91.14 Patient's other noncompliance with medication regimen; Z88.1 Allergy status to other antibiotic agents; Z86.010 Personal history of colon polyps; Z88.8 Allergy status to other drugs, medicaments and biological substances; Z98.84 Bariatric surgery status; Z90.49 Acquired absence of other specified parts of digestive tract; Z90.710 Acquired absence of both cervix and uterus; Z91.19 Patient's noncompliance with other medical treatment and regimen
CPT/HCPCS: 36415; 74177; 74177-26; 74240; 74240-26; 80048; 82306; 82525; 82607; 82728; 82746; 83690; 83735; 84590; 84630; 85027; 94762; 96361; 96374; 99285-25; A9270-GY; C9113; J0171; J0330; J0694; J1100; J1170; J1644; J2001; J2185; J2405; J2704; J2710; J2795; J3010; J3410; J3411; J3420; J3490; J7030; J7042; J7050; J7120; Q9967

== ENCOUNTER 2018-09-28 07:39 | Inpatient (IN) | payer BC ==
[~2018-09-28 07:39] MED LIST changes: -Lidocaine 1% with EPINEPHrine 1:100,000 50 ML MDV ONE; +Meropenem 500 MG SDV ONE; -Sodium Chloride 0.9% 0 ML ONE; -Sodium Chloride 0.9% 1,000 ML IV SCH; -Sodium Tetradecyl Sulfate 1% 20 MG/2 ML SDV ONE
[2018-09-28] MEDS ORDERED: Rocuronium 50 MG/5 ML Vial ONE (07:50)
[2018-09-28] MEDS ORDERED: Dexamethasone 4 MG/ML SDV ONE (07:50)
[2018-09-28] MEDS ORDERED: Neostigmine Methylsulfate 1 MG/ML 5 ML Syringe ONE (07:50)
[2018-09-28] MEDS ORDERED: Glycopyrrolate 0.2 MG/ML 5 ML MDV ONE (07:50)
[2018-09-28] MEDS ORDERED: Ondansetron 4 MG/2 ML SDV ONE (07:50)
[2018-09-28] MEDS ORDERED: Propofol 200 MG/20 ML SDV ONE (07:50)
[2018-09-28] MEDS ORDERED: fentaNYL 250 MCG/5 ML SDV ONE ×2 (07:51→12:15)
[2018-09-28] MEDS ORDERED: Acetaminophen 500 MG Tab PO ONE (08:15)
[2018-09-28] MEDS ORDERED: Scopolamine 1.5 MG Transdermal Patch TOP SCH (08:15)
[2018-09-28] MEDS ORDERED: CHECK TOP SCH (09:00)
[2018-09-28] MEDS ORDERED: Dextrose 5%-Lactated Ringers 1,000 ML IV SCH ×2 (09:00→21:45)
[2018-09-28] MEDS ORDERED: [UNRECOGNIZED DRUG - OTHER] TOP SCH (09:00)
[2018-09-28] MEDS ORDERED: ceFAZolin 2 GM in Premix Bag 1 BAG IV ONE (09:45)
[2018-09-28] MEDS ORDERED: Ketamine 50 MG in Sodium Chloride 0.9% 49.5 ML IV SCH (10:00)
[2018-09-28] MEDS ORDERED: Ketamine 500 MG/5 ML MDV IV SCH (10:00)
[2018-09-28] MEDS ORDERED: Ropivacaine 32 ML, Dexamethasone 8 MG, EPINEPHrine 0.4 MG, Sodium Chloride 0.9% 45.6 ML NERVRT SCH ×4 (10:00)
[2018-09-28] MEDS ORDERED: HYDROmorphone/Normal Saline 15 MG/30 ML PCA IV PRN (10:42)
[2018-09-28] MEDS ORDERED: Naloxone 0.4 MG/ML SDV IVPUSH PRN (10:42)
[2018-09-28] MEDS ORDERED: Bupivacaine 0.5%/EPINEPHrine 1:200,000 50 ML MDV ONE (12:41)
[2018-09-28] MEDS ORDERED: Lactated Ringers 1,000 ML ONE (13:18)
[2018-09-28] MEDS ORDERED: Cyclobenzaprine 10 MG Tab PO PRN (15:01)
[2018-09-28] MEDS ORDERED: hydrOXYzine HCl 100 MG/2 ML SDV IM PRN (15:01)
[2018-09-28] MEDS: MVI, Adult with Vitamin K 10 ML, Chromium/Copper/Mang/Selen/Zn 1 ML in Dextrose 5%-Lact... IV SCH ×6 (16:10→23:02)
[2018-09-28] MEDS: ceFAZolin 2 GM in Premix Bag 1 BAG IV SCH (20:09)
[2018-09-29] MEDS: ceFAZolin 2 GM in Premix Bag 1 BAG IV SCH ×2 (03:24→11:55)
[2018-09-29] MEDS ORDERED: Dextrose 5%-Lactated Ringers 1,000 ML IV SCH (09:15)
[2018-09-29] MEDS ORDERED: Acetaminophen 325 MG Tab PO SCH (10:00)
[2018-09-29] MEDS: Bisacodyl 5 MG Tab PO SCH ×2 (11:56→20:36)
[2018-09-29] MEDS: Acetaminophen/HYDROcodone 325-5 MG Tab PO PRN ×3 (11:57→21:41)
[2018-09-29] MEDS: Ibuprofen 400 MG Tab PO SCH ×3 (11:58→23:06)
[2018-09-29] MEDS ORDERED: Zolpidem 5 MG Tab PO PRN (13:54)
[2018-09-30] MEDS: Acetaminophen/HYDROcodone 325-5 MG Tab PO PRN ×2 (01:03→04:09)
[2018-09-30] MEDS: Ibuprofen 400 MG Tab PO SCH (05:56)
[2018-09-30] MEDS ORDERED: Magnesium Hydroxide 400 MG/5 ML Susp 30 ML Cup PO PRN (07:59)
[2018-09-30 08:19] VITALS: BP 98/62
--- NOTE | 2018-09-30 14:07 | PN ---
DATE OF SERVICE: 09/29/2018 The patient has been afebrile with stable vital signs. give her step 4 diet, back down on the IV rate, and shower as needed. We will begin some bowel stimulation. We will leave her on the SENIOR BIOINFORMATICS SCIENTIST today, adding some Tylenol orally as well. Julian Prince MD /[id number]
--- NOTE | 2018-10-02 08:21 | DISCH ---
FINAL DIAGNOSES: 1. Recurrent incarcerated incisional hernia. 2. Extensive intraabdominal adhesions. 3. Status post duodenal switch. 4. History of hyperglycemia that resolved status post duodenal switch. 5. History of polycystic ovary syndrome. OPERATIVE PROCEDURES: Done on 09/28/2018, open repair of recurrent incarcerated incisional hernia with mesh with removal of previously placed mesh and placement of additional Vicryl mesh to limit recurrent adhesion formation. SUMMARY: This is a 38-year-old presenting with recurrent incisional hernia in the epigastric region. The patient presented for repair, which was accomplished by an open approach with removal of the previously placed mesh and placement of new mesh. This patient had quite a bit in the way of adhesions, and in addition to the new permanent mesh, Vicryl mesh was placed, allowing this to limit recurrent adhesion formation. Postoperatively, no major problems were noted. She is tolerating regular duodenal switch diet and oral pain medication. She will be discharged home on [place] 5/325 one tablet q.4 hours p.r.n. pain #50 and also instructed she can take ibuprofen 400 to 600 mg q.i.d. as needed, and will be sent home with 3 doses of Milk of Magnesia to be taken p.r.n. for constipation. She has a Scopalamine patch on, which she will be instructed to remove tomorrow, and followup will be with Silvana Aldana PA-C at [facility] on 10/08/2018.
--- NOTE | 2018-10-03 15:30 | OR ---
DATE OF PROCEDURE: 09/28/2018 PREOPERATIVE DIAGNOSIS: Recurrent incisional hernia. POSTOPERATIVE DIAGNOSES: 1. Recurrent incarcerated incisional hernia. 2. Extensive intraabdominal adhesions. OPERATIVE PROCEDURES: 1. Open repair of recurrent incarcerated incisional hernia with mesh including removal of previously-placed mesh (30918, [id number]). 2. Placement of Vicryl mesh to displace viscera from pelvic and abdominal gamble to limit recurrent adhesion formation ([id number]). ANESTHESIA: General. ASSISTANTS: Silvana Aldana PA-C, and Jayce Boswell MS1. INDICATIONS FOR PROCEDURE: This is a 38-year-old presenting with recurrent incisional hernia. This was repaired previously with a laparoscopic approach with redevelopment of recurrence. The plan will be to proceed with an open approach as the fascial defect is wide enough that a laparoscopic approach at this point probably would be prone to recur once again and full closure of the abdominal wall fascia would likely provide the patient a more stable abdominal wall in terms of comfort and functionality. We will most likely remove the previously-placed mesh and then place new somewhat larger mesh underneath the new fascial closure. Potential risks of the procedure including bleeding, infection, injury to the underlying viscera, problems with the mesh becoming infected, or the hernia recurring were all reviewed, and the patient wishes to proceed. DETAILS OF PROCEDURE: The patient was taken to the operating room and placed in a supine position. After general endotracheal anesthesia was induced, a Lopez catheter was inserted, and the abdomen was prepped and draped. The previous midline incision was then reused with a vertical incision, removing a small amount of skin to allow more satisfactory closure. This was carried down through the skin and subcutaneous tissue into the mesh. The mesh was then freed up from the abdominal wall circumferentially. Upon entering the peritoneal cavity behind the mesh, quite a bit in the way of adhesions were present between the omentum and some small bowel, but were able to be taken down without any small bowel injuries. The duodenal switch status was evaluated and all appeared to be in satisfactory conditions. Upon removal of the mesh, new Ventrio ST mesh measuring 15 x 20 cm was selected, at roughly 5 cm intervals around its circumference, 2-0 Vicryl sutures were placed on the polypropylene side of the mesh. Small stab wounds were then placed circumferentially where those sutures will be pulled up, thus fixing the mesh well away from the edges of the hernia. Once these were in place, Vicryl mesh was then placed underneath the newly placed permanent mesh and then from there down into the pelvic sidewalls to limit recurrent adhesion formation by displacing the viscera from those surfaces. Remainder of the 2-0 Vicryl sutures were then pulled up, fixing the mesh in general position. The underlying shelf of the mesh was then also placed circumferentially with titanium tacking screws. The midline fascia was then approximated with a #2 Vicryl stitch, subcutaneous tissue with 2 layers of 3-0 Vicryl stitch, and the skin with vijaya. Dressing was applied. The patient was taken to the recovery room in a satisfactory condition. Physician assistant manager, Silvana Aldana, played an essential role in assisting in this case, helping to position the patient, retract structures as needed, as well as suturing and cutting sutures when indicated. Her presence improved patient safety and decreased the operative time. Julian Prince MD /[id number]
== END 2018-09-30 09:15 | disposition home or self-care (01) | DRG 227 ==
LOC: JP.SDSSCHI 07:39 → JP.SDS 07:39 → EDSTATUS 13:30 → JP.2SS 13:40
PROVIDERS: ADMIT Surgery; ATTEND Surgery
PROC: 0WUF0JZ Supplement Abdominal Wall with Synthetic Substitute, Open Approach (ICD-10-PCS; principal; 2018-09-28)
PROC: 3E0M05Z Introduction of Adhesion Barrier into Peritoneal Cavity, Open Approach (ICD-10-PCS; 2018-09-28)
PROC: 0WPF0JZ Removal of Synthetic Substitute from Abdominal Wall, Open Approach (ICD-10-PCS; 2018-09-28)
PROC: 0DNW0ZZ Release Peritoneum, Open Approach (ICD-10-PCS; 2018-09-28)
DX: K43.0 Incisional hernia with obstruction, without gangrene (principal); K66.0 Peritoneal adhesions (postprocedural) (postinfection); Z98.84 Bariatric surgery status; E28.2 Polycystic ovarian syndrome; K59.00 Constipation, unspecified; K58.9 Irritable bowel syndrome, unspecified; E55.9 Vitamin D deficiency, unspecified; E53.8 Deficiency of other specified B group vitamins; Z90.710 Acquired absence of both cervix and uterus; Z90.49 Acquired absence of other specified parts of digestive tract; Z88.1 Allergy status to other antibiotic agents; K44.0 Diaphragmatic hernia with obstruction, without gangrene
CPT/HCPCS: 88300; 94762; A9270-GY; C1781; J0171; J0690; J1100; J1170; J2020; J2185; J2405; J2704; J2710; J2795; J3010; J3490; J7042; J7050; J7120

== ENCOUNTER 2018-11-24 18:22 | Emergency (ER) | payer SELFPAY ==
[2018-11-24] MEDS ORDERED: Lidocaine 2% Jelly 10 ML Urojet MUCMEM ONE (19:03)
--- NOTE | 2018-11-24 19:14 | EDM.PDOC ---
ED HPI GENERAL MEDICAL PROBLEM - General Chief Complaint: General Stated Complaint: HEMORROIDS Time Seen by Provider: 11/24/18 18:24 Source of Information: Reports: Patient, RN Notes Reviewed History Limitations: Reports: No Limitations - History of Present Illness INITIAL COMMENTS - FREE TEXT/NARRATIVE: 38-year-old female presents emergency department today complaint of hemorrhoids , she has been dealing with her hemorrhoids now for 3 months has had an appointment with Gen. surgery to talk about hemorrhoidal care. She states the pain has gotten worse her hemorrhoids difficult for her to sit she did have a follow-up appointment general surgery unfortunately she missed that. No significant bleeding no syncopal events hemmorhoid Pain Score (Numeric/FACES): 4 - Related Data Allergies Allergy/AdvReac Type Severity Reaction Status Date / Time amoxicillin [Amoxicillin] Allergy Hives Verified 09/28/18 08:10 Tetracyclines Allergy Hives Verified 09/28/18 08:10 Home Meds: Home Meds Multivitamin [Multi-Vitamin Daily] 1 tab CHEW BID 06/14/18 [History] Acetaminophen [Tylenol Extra Strength] 2 tab PO TID PRN 11/24/18 [History] Past Medical History Cardiovascular History: Reports: Arrhythmia Gastrointestinal History: Reports: Chronic Constipation, Colon Polyp, Gastritis , GERD, Hemorrhoids, Hiatal Hernia, Irritable Bowel Syndrome Genitourinary History: Reports: Other (See Below) Other Genitourinary History: difficulty getting stream 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: , 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 Endocrine/Metabolic History: Reports: Obesity/BMI 30+ Hematologic History: Reports: B12 Deficiency, Other (See Below) Other Hematologic History: vitamin deficient - Past Surgical History HEENT Surgical History: Reports: None GI Surgical History: Reports: Bariatric Procedure, Cholecystectomy, Colonoscopy , EGD, Hernia Repair/Other Female Surgical History: Reports: Hysterectomy Musculoskeletal Surgical History: Reports: Other (See Below) Other Musculoskeletal Surgeries/Procedures:: Mahamed bunionectomy Oncologic Surgical History: Reports: None Social & Family History - Family History Family Medical History: Noncontributory Cardiac: Reports: Bypass, Hypertension, DC Respiratory: Reports: None GI: Reports: None : Reports: None OBGYN: Reports: None Musculoskeletal: Reports: None Neurological: Reports: Dementia Psychiatric: Reports: None Endocrine/Metabolic: Reports: Diabetes, type II, Hypothyroidism Hematologic: Reports: None Immunologic: Reports: None Dermatologic: Reports: None Oncologic: Reports: Breast, Cervix, Liver - Tobacco Use Smoking Status *Q: Never Smoker Second Hand Smoke Exposure: No - Caffeine Use Caffeine Use: Reports: Coffee, Energy Drinks - Recreational Drug Use Recreational Drug Use: No ED ROS GENERAL - Review of Systems Review Of Systems: See Below Constitutional: Reports: No Symptoms Cardiovascular: Reports: No Symptoms GI/Abdominal: Reports: Other (Hemorrhoids). Denies: Bloody Stool ED EXAM, GENERAL - Physical Exam Exam: See Below Free Text/Narrative:: Rectal examination in the presence of nursing staff I do appreciate a large hemorrhoid at 3 o'clock position it is tender to the touch and reducible Exam Limited By: No Limitations General Appearance: Alert, WD/WN, No Apparent Distress Course - Vital Signs Last Recorded V/S: Last Vital Signs Temp 96.4 F 11/24/18 18:41 Pulse 70 11/24/18 18:41 Resp 14 11/24/18 18:41 BP 110/76 11/24/18 18:41 Pulse Ox 94 L 11/24/18 18:41 - Orders/Labs/Meds Meds: Medications Discontinued Medications Generic Name Dose Route Start Last Admin Trade Name Tjq PRN Reason Stop Dose Admin Lidocaine HCl 10 ml 11/24/18 19:03 Xylocaine 2% Jelly MUCMEM 11/24/18 19:04 ONETIME ONE Departure - Departure Time of Disposition: 19:11 Disposition: Home, Self-Care 01 Condition: Fair Clinical Impression: Hemorrhoids Qualifiers: Hemorrhoid type: second degree Qualified Code(s): K64.1 - Second degree hemorrhoids - Discharge Information Referrals: Silvana Aldana PA-C [Primary Care Provider] - Forms: ED Department Discharge, ED Return to Work/School Form Additional Instructions: Continue to use the lidocaine as needed for comfort, please follow-up with general surgery on November 27 call in the morning to the [facility] for an appointment time with Dr. Smith - Assessment/Plan Plan: Assessment Acuity = chronic Site and laterality = hemorrhoids Etiology = unknown etiology Manifestations = rectal pain Location of injury = Home Lab values = none Plan Called discussed case with Dr. Smith at 1900 recommended to follow-up appointment in clinic on November 27 for comfort she is provided 2% lidocaine gel which she can use as needed This note was dictated using [employer] voice recognition software please call with any questions on syntax or grammar.
[2018-11-24 19:15] VITALS: BP 122/79
== END 2018-11-24 19:28 | disposition home or self-care (01) ==
LOC: JP.ED 18:22
DX: K64.1 Second degree hemorrhoids (principal); K21.9 Gastro-esophageal reflux disease without esophagitis; Z79.899 Other long term (current) drug therapy; Z88.1 Allergy status to other antibiotic agents
CPT/HCPCS: 99282

== ENCOUNTER 2018-11-30 07:53 | Day surgery (SDC) | payer SELFPAY ==
[~2018-11-30 07:53] MED LIST changes: +Bupivacaine 0.5% 50 ML MDV ONE; +Lidocaine 1% with EPINEPHrine 1:100,000 50 ML MDV ONE; +Lidocaine 2% Jelly 30 ML Tube ONE; -Meropenem 500 MG SDV ONE
[2018-11-30] MEDS ORDERED: Sodium Chloride 0.9% 1,000 ML IV SCH (08:00)
[2018-11-30] MEDS ORDERED: fentaNYL 100 MCG/2 ML SDV ONE (08:42)
[2018-11-30] MEDS ORDERED: Midazolam 1 MG/ML 2 ML SDV ONE (08:42)
[2018-11-30] MEDS ORDERED: Propofol 200 MG/20 ML SDV ONE ×2 (08:42→09:04)
[2018-11-30] MEDS ORDERED: ceFAZolin 2 GM in Premix Bag 1 BAG IV ONE (09:00)
[2018-11-30 10:38] VITALS: BP 96/69
--- NOTE | 2018-11-30 14:38 | OR ---
DATE OF PROCEDURE: 11/30/2018 PROCEDURE: Excision, external and internal hemorrhoid. COMPLICATIONS: None. DATA CENTER ARCHITECT: None. FINDINGS: Prominent external hemorrhoid with history of thrombosis. RISKS: Risks, benefits, alternatives, and limitations including, but not limited to infection, bleeding, fistula formation, chronic pain, fissures, and other risks not listed here were explained to the patient who wished to proceed. PREOPERATIVE DIAGNOSES: Common hemorrhoids and diarrhea. POSTOPERATIVE DIAGNOSES: Common hemorrhoids and diarrhea. PROCEDURE IN DETAIL: The patient was placed in prone gideon-knife position. The prominent hemorrhoid was at the 1 o'clock position, was readily identified. This was anesthetized with 1% lidocaine. This was then completely excised in an elliptical demetrius-type fashion with a 15 blade in conjunction with electrocautery. This was internal and external hemorrhoid excision. This was then closed with a chromic suture in a running locked fashion dressings were applied. The patient tolerated the procedure well. Nba Smith MD /[id number]
== END 2018-11-30 10:38 | disposition home or self-care (01) ==
LOC: JP.SDS 07:53
PROVIDERS: ATTEND Surgery
DX: K64.4 Residual hemorrhoidal skin tags (principal); K64.8 Other hemorrhoids; R19.7 Diarrhea, unspecified; K90.9 Intestinal malabsorption, unspecified; R73.9 Hyperglycemia, unspecified; Z88.0 Allergy status to penicillin; Z88.8 Allergy status to other drugs, medicaments and biological substances; Z87.19 Personal history of other diseases of the digestive system
CPT/HCPCS: 36415; 46255; 80048; 85027; 88304; J0690; J2250; J2704; J3010; J3490; J7030

== ENCOUNTER 2018-12-14 07:09 | Day surgery (SDC) | payer OTHER ==
[2018-12-14] MEDS ORDERED: Sodium Chloride 0.9% 1,000 ML IV SCH (08:15)
[2018-12-14] MEDS ORDERED: Lidocaine 2% Jelly 10 ML Urojet ONE (08:37)
[2018-12-14] MEDS ORDERED: Bupivacaine 0.5% 50 ML MDV ONE (08:37)
[2018-12-14] MEDS ORDERED: Lidocaine 1% with EPINEPHrine 1:100,000 50 ML MDV ONE (08:37)
[2018-12-14] MEDS ORDERED: metroNIDAZOLE/Normal Saline 500 MG in Premix Bag 1 BAG IV ONE (08:50)
[2018-12-14] MEDS ORDERED: Propofol 200 MG/20 ML SDV ONE ×2 (08:57→09:20)
[2018-12-14] MEDS ORDERED: fentaNYL 100 MCG/2 ML SDV ONE (09:01)
[2018-12-14] MEDS ORDERED: Midazolam 1 MG/ML 2 ML SDV ONE (09:01)
[2018-12-14 10:36] VITALS: BP 98/67
--- NOTE | 2018-12-14 12:30 | OR ---
DATE OF PROCEDURE: 12/14/2018 PROCEDURE: Hemorrhoidectomy. COMPLICATIONS: None. 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 PREOPERATIVE DIAGNOSIS: Hemorrhoid pain. POSTOPERATIVE DIAGNOSIS: Hemorrhoid pain. RISKS: Risks, benefits, alternatives, and limitations including but not limited to infection, bleeding, and fistula formation were explained to the patient who wished to proceed. PROCEDURE IN DETAIL: The patient was placed in prone position. The prominent hemorrhoid on the right side which the patient identified preoperatively was identified. This was anesthetized with lidocaine. Elliptical incision was made. This was excised using a 15 blade in conjunction with electrocautery and closed with chromic suture. Gelfoam was applied. The patient tolerated the procedure well. Nba Smith MD /[id number]
== END 2018-12-14 10:50 | disposition home or self-care (01) ==
LOC: JP.SDS 07:09
PROVIDERS: ATTEND Surgery
DX: K64.9 Unspecified hemorrhoids (principal); K58.9 Irritable bowel syndrome, unspecified; K50.90 Crohn's disease, unspecified, without complications; Z88.0 Allergy status to penicillin; Z88.1 Allergy status to other antibiotic agents
CPT/HCPCS: 46999; J2250; J2704; J3010; J3490; J7030